=== PATIENT | female | born 1985 ===

== ENCOUNTER 2021-01-14 20:11 | Emergency (ER) | payer SELFPAY | END 2021-01-14 22:20 | disposition left against medical advice (07) | LOC: ED 20:11 | DX: O26.891 Other specified pregnancy related conditions, first trimester (principal); R10.9 Unspecified abdominal pain; Z3A.16 16 weeks gestation of pregnancy; Z53.21 Procedure and treatment not carried out due to patient leaving prior to being seen by health care provider ==